=== PATIENT | male | born 1975 ===

== ENCOUNTER 2022-12-07 22:24 | Outpatient (REF) | payer OTHER, SELFPAY ==
[2022-12-07 22:27] LABS: Calculated LDL 120 mg/dL (<100); Cholesterol 192 mg/dL (<200); HDL Cholesterol 60 mg/dL (40-60); Triglyceride 61 mg/dL (<150)
== END 2022-12-07 22:25 | disposition home or self-care (01) ==
LOC: NCHCN 22:24
PROVIDERS: PCP Internal Medicine; Visit Provider Internal Medicine
DX: Z00.00 Encounter for general adult medical examination without abnormal findings (principal); E78.89 Other lipoprotein metabolism disorders
CPT/HCPCS: 80061